=== PATIENT | female | born 1940 | race Two or more races ===

== ENCOUNTER 2021-07-08 22:35 | Inpatient (IN) | payer MEDICAID, MEDICARE, OTHER ==
[~2021-07-08] VITALS: Ht 165.1 cm; Wt 86.2 kg
[~2021-07-08 22:35] MED LIST: ALLO100T PO; ASPI-1497 PO; ATOR10TA69 PO; DOCU-138 MT; METO-396 PO; OMEP20CA14 PO
[2021-07-08] MEDS ORDERED: ASPIRIN 81MG TABLET PO ONE (23:00)
[2021-07-08] MEDS ORDERED: SODIUM CHLORIDE 0.9% 1,000 ML IV ONE (23:00)
[2021-07-08 23:29] LABS: BASOPHILS % 0.5 % (0.0-2.0); EOSINOPHILS % 3.1 % (0.0-5.0); HEMATOCRIT. 30.4 % (36.0-48.0); HEMOGLOBIN. 10.1 g/dL (12.0-16.0); LYMPHOCYTES % 25.9 % (20.0-50.0); MEAN CORPUSCULAR HEMOGLOBIN 31.9 pg (28.0-32.0); MEAN CORPUSCULAR VOLUME 95.9 fL (81.0-99.0); MEAN PLATELET VOLUME 6.7 fl (7.4-10.4); MONOCYTES % 10.9 % (2.0-8.0); NEUTROPHILS % 59.6 % (40.0-76.0); PLATELET 211 x1000/uL (130-400); RED BLOOD CELL COUNT 3.17 mill/uL (4.2-5.4); RED CELL DISTRIBUTION WIDTH 16.5 % (11.6-14.6)
[2021-07-08 23:32] LABS: CHLORIDE 107 mEq/L (98-107)
[2021-07-09 01:22] LABS: CLARITY URINE TURBID (CLEAR); COLOR URINE DARK YELLOW (YELLOW); KETONES URINE TRACE (NEGATIVE); LEUKOCYTE ESTERASE URINE 3+ (NEGATIVE); NITRITE URINE NEGATIVE (NEGATIVE); OCCULT BLOOD URINE 2+ (NEGATIVE); PH URINE 5.5 (4.5-8.0); PROTEIN URINE 2+ (NEGATIVE); SPECIFIC GRAVITY URINE 1.018 (1.005-1.030)
[2021-07-09] MEDS ORDERED: CEFTRIAXONE 1 G PREMIX 50 ML IV SCH ×2 (01:45→13:00)
[2021-07-09] MEDS ORDERED: SODIUM CHLORIDE 0.9% 1000ML BAG (SEPSIS BOLUS) IV ONE (01:45)
[2021-07-09] MEDS ORDERED: SODIUM CHLORIDE 0.9% 1,000 ML IV ONE (05:15)
[2021-07-09] MEDS ORDERED: ENOXAPARIN 40MG/0.4ML SYR SUBCUT SCH (10:45)
[2021-07-09] MEDS ORDERED: SODIUM CHLORIDE 0.45% 1,000 ML IV ONE (11:00)
[2021-07-09] MEDS: ACETAMINOPHEN 325MG TABLET PO PRN (11:48)
[2021-07-09] MEDS: ASPIRIN 81MG EC TABLET PO SCH (12:23)
[2021-07-09] MEDS: METOPROLOL SUCCINATE 50MG ER TABLET PO SCH (12:50)
[2021-07-09] MEDS: MIDODRINE HCL 5MG TABLET PO SCH ×2 (13:00→17:00)
[2021-07-09] MEDS ORDERED: NOREPINEPHRINE 8MG/250ML PMX 250 ML IV ONE (13:00)
[2021-07-09] MEDS: NOREPINEPHRINE 8 MG in DEXTROSE 5% WATER 250 ML IV PRN (13:35)
[2021-07-09] MEDS: PIPERACILLIN/TAZ 3.375G PREMIX 50 ML IV SCH ×2 (13:44→20:43)
[2021-07-09] MEDS: ENOXAPARIN 30MG/0.3ML SYR SUBCUT SCH (14:47)
[2021-07-09] MEDS: OMEPRAZOLE 20MG CAPSULE EXTENDED RELEASE PO SCH (14:47)
[2021-07-09] MEDS: ALLOPURINOL 100 MG TABLET PO SCH (17:51)
[2021-07-09] MEDS: SODIUM CHLORIDE 0.45% 1,000 ML IV SCH (20:42)
[2021-07-09] MEDS: DOCUSATE SODIUM 100MG CAPSULE PO SCH (20:43)
[2021-07-09] MEDS: ATORVASTATIN CALCIUM 10MG TABLET PO SCH (20:43)
[2021-07-10] VITALS (36 sets, daily range): BP systolic 51–165; BP diastolic 25–114
[2021-07-10] MEDS: PIPERACILLIN/TAZ 3.375G PREMIX 50 ML IV SCH ×2 (05:26→13:24)
[2021-07-10 07:57] LABS: HEMATOCRIT. 31.6 % (36.0-48.0); HEMOGLOBIN. 10.6 g/dL (12.0-16.0); MEAN CORPUSCULAR HEMOGLOBIN 32.2 pg (28.0-32.0); MEAN CORPUSCULAR VOLUME 96.1 fL (81.0-99.0); MEAN PLATELET VOLUME 6.9 fl (7.4-10.4); PLATELET 218 x1000/uL (130-400); RED BLOOD CELL COUNT 3.29 mill/uL (4.2-5.4); RED CELL DISTRIBUTION WIDTH 16.6 % (11.6-14.6)
[2021-07-10 08:18] LABS: CHLORIDE 113 mEq/L (98-107)
[2021-07-10] MEDS: METOPROLOL SUCCINATE 50MG ER TABLET PO SCH (09:00)
[2021-07-10] MEDS: NOREPINEPHRINE 8 MG in DEXTROSE 5% WATER 250 ML IV PRN (10:30)
[2021-07-10] MEDS: ALLOPURINOL 100 MG TABLET PO SCH (11:46)
[2021-07-10] MEDS: MIDODRINE HCL 5MG TABLET PO SCH ×3 (11:46→17:43)
[2021-07-10] MEDS: ASPIRIN 81MG EC TABLET PO SCH (11:47)
[2021-07-10] MEDS: SODIUM CHLORIDE 0.45% 1,000 ML IV SCH ×2 (11:47→17:51)
[2021-07-10] MEDS: DOCUSATE SODIUM 100MG CAPSULE PO SCH ×2 (11:47→17:43)
[2021-07-10] MEDS: OMEPRAZOLE 20MG CAPSULE EXTENDED RELEASE PO SCH (11:47)
[2021-07-10] MEDS: ENOXAPARIN 30MG/0.3ML SYR SUBCUT SCH (11:47)
[2021-07-10 16:41] LABS: PLATELET ESTIMATE NORMAL
[2021-07-10] MEDS ORDERED: HYDROCORTISONE SOD SUCCINATE 100 MG/2 ML VIAL IV NR (17:15)
[2021-07-10] MEDS ORDERED: MIRT-89 MT (17:34)
[2021-07-10] MEDS ORDERED: SENN-257 MT (17:34)
[2021-07-10] MEDS ORDERED: LORA-250 MT (17:34)
[2021-07-10] MEDS ORDERED: T3 PO (17:34)
[2021-07-10] MEDS ORDERED: FURO20TA4 MT (17:34)
[2021-07-10] MEDS ORDERED: MECL-159 MT (17:34)
[2021-07-10] MEDS: ATORVASTATIN CALCIUM 10MG TABLET PO SCH (21:48)
[2021-07-10] MEDS: PIPERACILLIN/TAZOBACTAM 3.375G in DEXT 5% WATER 50ML IV SCH (21:48)
[2021-07-11] VITALS (97 sets, daily range): BP systolic 42–226; BP diastolic 19–185
[2021-07-11] MEDS: PIPERACILLIN/TAZOBACTAM 3.375G in DEXT 5% WATER 50ML IV SCH ×3 (06:38→22:42)
[2021-07-11] MEDS: SODIUM CHLORIDE 0.45% 1,000 ML IV SCH ×2 (06:58→23:38)
[2021-07-11] MEDS: ENOXAPARIN 30MG/0.3ML SYR SUBCUT SCH (09:05)
[2021-07-11] MEDS: ALLOPURINOL 100 MG TABLET PO SCH (09:05)
[2021-07-11] MEDS: OMEPRAZOLE 20MG CAPSULE EXTENDED RELEASE PO SCH (09:06)
[2021-07-11] MEDS: DOCUSATE SODIUM 100MG CAPSULE PO SCH ×2 (09:06→17:01)
[2021-07-11] MEDS: MIDODRINE HCL 5MG TABLET PO SCH ×3 (09:06→17:01)
[2021-07-11] MEDS: ASPIRIN 81MG EC TABLET PO SCH (09:06)
[2021-07-11 09:16] LABS: BASOPHILS % 0.4 % (0.0-2.0); EOSINOPHILS % 0.1 % (0.0-5.0); HEMATOCRIT. 28.7 % (36.0-48.0); HEMOGLOBIN. 9.6 g/dL (12.0-16.0); LYMPHOCYTES % 21.6 % (20.0-50.0); MEAN CORPUSCULAR VOLUME 96.1 fL (81.0-99.0); MEAN PLATELET VOLUME 7.4 fl (7.4-10.4); MONOCYTES % 3.4 % (2.0-8.0); NEUTROPHILS % 74.5 % (40.0-76.0); PLATELET 203 x1000/uL (130-400); RED BLOOD CELL COUNT 2.99 mill/uL (4.2-5.4); RED CELL DISTRIBUTION WIDTH 16.4 % (11.6-14.6)
[2021-07-11 09:44] LABS: CHLORIDE 112 mEq/L (98-107)
[2021-07-11] MEDS: METOPROLOL SUCCINATE 50MG ER TABLET PO SCH (13:20)
[2021-07-11] MEDS ORDERED: ALBUMIN HUMAN 25GM/500ML (5%) IV NR (14:45)
[2021-07-11] MEDS: NOREPINEPHRINE 32 MG in DEXT 5% WATER 218 ML IV PRN ×2 (16:16→21:27)
[2021-07-11 16:24] LABS: T4 FREE 1.19 ng/dL (0.76-1.46)
[2021-07-11 17:41] LABS: CLARITY URINE CLEAR (CLEAR); COLOR URINE YELLOW (YELLOW); KETONES URINE NEGATIVE (NEGATIVE); NITRITE URINE POSITIVE (NEGATIVE); OCCULT BLOOD URINE NEGATIVE (NEGATIVE); PROTEIN URINE NEGATIVE (NEGATIVE); SPECIFIC GRAVITY URINE 1.006 (1.005-1.030); UROBILINOGEN URINE 0.2 E.U./dL (0.2-1.0)
[2021-07-11 17:42] LABS: LEUKOCYTE ESTERASE URINE 3+ (NEGATIVE)
[2021-07-11] MEDS ORDERED: PNEUMOCOCCAL 23-VAL P-SAC VAC 0.5 ML IM ONE (21:00)
[2021-07-11] MEDS: ATORVASTATIN CALCIUM 10MG TABLET PO SCH (21:22)
[2021-07-12] VITALS (79 sets, daily range): BP systolic 84–184; BP diastolic 38–123
[2021-07-12 06:05] LABS: EOSINOPHILS % 6.8 % (0.0-5.0); HEMATOCRIT. 31.3 % (36.0-48.0); HEMOGLOBIN. 10.5 g/dL (12.0-16.0); LYMPHOCYTES % 23.5 % (20.0-50.0); MEAN CORPUSCULAR HEMOGLOBIN 31.8 pg (28.0-32.0); MEAN PLATELET VOLUME 6.9 fl (7.4-10.4); MONOCYTES % 10.4 % (2.0-8.0); NEUTROPHILS % 58.3 % (40.0-76.0); PLATELET 280 x1000/uL (130-400); RED BLOOD CELL COUNT 3.29 mill/uL (4.2-5.4); RED CELL DISTRIBUTION WIDTH 16.7 % (11.6-14.6)
[2021-07-12] MEDS: PIPERACILLIN/TAZOBACTAM 3.375G in DEXT 5% WATER 50ML IV SCH ×3 (06:09→21:22)
[2021-07-12 06:15] LABS: CHLORIDE 112 mEq/L (98-107)
[2021-07-12] MEDS: OMEPRAZOLE 20MG CAPSULE EXTENDED RELEASE PO SCH (08:04)
[2021-07-12] MEDS: ENOXAPARIN 40MG/0.4ML SYR SUBCUT SCH (08:45)
[2021-07-12] MEDS: MIDODRINE HCL 5MG TABLET PO SCH ×3 (08:46→17:12)
[2021-07-12] MEDS: ALLOPURINOL 100 MG TABLET PO SCH (08:46)
[2021-07-12] MEDS: ASPIRIN 81MG EC TABLET PO SCH (08:46)
[2021-07-12] MEDS: DOCUSATE SODIUM 100MG CAPSULE PO SCH ×2 (08:48→17:00)
[2021-07-12] MEDS ORDERED: POTASSIUM CHLORIDE 20MEQ TABLET SR PO SCH (10:15)
[2021-07-12] MEDS ORDERED: LORAZEPAM 1MG TABLET PO NR (11:00)
[2021-07-12] MEDS: METOPROLOL SUCCINATE 50MG ER TABLET PO SCH (11:13)
[2021-07-12 12:50] LABS: INR 1.1
[2021-07-12] MEDS ORDERED: KCL 20MEQ/100ML PREMIX 100 ML IV NR (17:00)
[2021-07-12] MEDS: ACETAMINOPHEN 325MG TABLET PO PRN (17:12)
[2021-07-12] MEDS: SODIUM CHLORIDE 0.45% 1,000 ML IV SCH (17:19)
[2021-07-12] MEDS: DOPAMINE 400MG/250ML PREMIX 250 ML IV PRN (17:58)
[2021-07-12 19:08] LABS: BG CARBOXYHEMOGLOBIN 0.1 % (0.5-1.5); BG DEOXYHEMOGLOBIN 4.7 % (0.0-5.0); BG FRACTION INSPIRED OXYGEN 21; BG HCO3 ACT 22.8 mmol/L (22.0-26.0); BG METHEMOGLOBIN 0.2 % (0.0-1.5); BG OXYGEN SATURATION 95.3 % (92.0-98.5); BG PCO2 38.9 mmHg (35.0-45.0); BG PH 7.385 (7.350-7.450); BG PO2 77.3 mmHg (75.0-100.0); BG TOTAL HEMOGLOBIN 11.2 g/dL (12.0-18.0); BG VENT MODE ROOM AIR
[2021-07-12] MEDS: ATORVASTATIN CALCIUM 10MG TABLET PO SCH (20:42)
[2021-07-13] VITALS (90 sets, daily range): BP systolic 47–194; BP diastolic 18–143
[2021-07-13] MEDS: ACETAMINOPHEN 650MG/20.3ML UDC PO PRN (03:48)
[2021-07-13] MEDS: DOPAMINE 400MG/250ML PREMIX 250 ML IV PRN (03:48)
[2021-07-13] MEDS: PIPERACILLIN/TAZOBACTAM 3.375G in DEXT 5% WATER 50ML IV SCH ×3 (05:56→21:23)
[2021-07-13] MEDS: SODIUM CHLORIDE 0.45% 1,000 ML IV SCH (05:57)
[2021-07-13] MEDS: OMEPRAZOLE 20MG CAPSULE EXTENDED RELEASE PO SCH (05:57)
[2021-07-13 06:03] LABS: EOSINOPHILS % 7.8 % (0.0-5.0); HEMATOCRIT. 33.7 % (36.0-48.0); HEMOGLOBIN. 11.5 g/dL (12.0-16.0); LYMPHOCYTES % 21.3 % (20.0-50.0); MEAN CORPUSCULAR HEMOGLOBIN 32.3 pg (28.0-32.0); MEAN CORPUSCULAR VOLUME 94.8 fL (81.0-99.0); MONOCYTES % 11.3 % (2.0-8.0); NEUTROPHILS % 58.6 % (40.0-76.0); PLATELET 222 x1000/uL (130-400); RED BLOOD CELL COUNT 3.56 mill/uL (4.2-5.4); RED CELL DISTRIBUTION WIDTH 16.7 % (11.6-14.6)
[2021-07-13 06:33] LABS: CHLORIDE 112 mEq/L (98-107)
[2021-07-13] MEDS: DOCUSATE SODIUM 100MG CAPSULE PO SCH ×2 (09:13→17:00)
[2021-07-13] MEDS: ALLOPURINOL 100 MG TABLET PO SCH (09:13)
[2021-07-13] MEDS: ASPIRIN 81MG EC TABLET PO SCH (09:13)
[2021-07-13] MEDS: ENOXAPARIN 40MG/0.4ML SYR SUBCUT SCH (09:14)
[2021-07-13] MEDS: MIDODRINE HCL 5MG TABLET PO SCH ×3 (09:14→17:00)
[2021-07-13] MEDS ORDERED: MAGNESIUM 2 G PREMIX 50 ML IV NR (11:00)
[2021-07-13] MEDS: NOREPINEPHRINE 32 MG in DEXT 5% WATER 218 ML IV PRN (11:24)
[2021-07-13] MEDS: LORAZEPAM 2MG/ML CPJ IV PRN (13:22)
[2021-07-13] MEDS: ATORVASTATIN CALCIUM 10MG TABLET PO SCH (20:36)
[2021-07-14] VITALS (58 sets, daily range): BP systolic 59–168; BP diastolic 26–125
[2021-07-14] MEDS: LORAZEPAM 2MG/ML CPJ IV PRN ×2 (01:58→16:52)
[2021-07-14] MEDS: OMEPRAZOLE 20MG CAPSULE EXTENDED RELEASE PO SCH (05:31)
[2021-07-14] MEDS: PIPERACILLIN/TAZOBACTAM 3.375G in DEXT 5% WATER 50ML IV SCH (05:31)
[2021-07-14 06:12] LABS: BASOPHILS % 1.1 % (0.0-2.0); CHLORIDE 112 mEq/L (98-107); EOSINOPHILS % 10.2 % (0.0-5.0); HEMATOCRIT. 28.4 % (36.0-48.0); HEMOGLOBIN. 9.9 g/dL (12.0-16.0); LYMPHOCYTES % 40.2 % (20.0-50.0); MEAN CORPUSCULAR HEMOGLOBIN 32.9 pg (28.0-32.0); MEAN CORPUSCULAR VOLUME 94.6 fL (81.0-99.0); MEAN PLATELET VOLUME 7.1 fl (7.4-10.4); MONOCYTES % 9.6 % (2.0-8.0); NEUTROPHILS % 38.9 % (40.0-76.0); PLATELET 201 x1000/uL (130-400); RED BLOOD CELL COUNT 3.01 mill/uL (4.2-5.4); RED CELL DISTRIBUTION WIDTH 16.7 % (11.6-14.6)
[2021-07-14] MEDS: DOCUSATE SODIUM 100MG CAPSULE PO SCH ×2 (09:50→16:35)
[2021-07-14] MEDS: ASPIRIN 81MG EC TABLET PO SCH (09:50)
[2021-07-14] MEDS: ENOXAPARIN 40MG/0.4ML SYR SUBCUT SCH (09:50)
[2021-07-14] MEDS: MIDODRINE HCL 5MG TABLET PO SCH ×3 (09:50→16:39)
[2021-07-14] MEDS: ALLOPURINOL 100 MG TABLET PO SCH (09:50)
[2021-07-14] MEDS: ATORVASTATIN CALCIUM 10MG TABLET PO SCH (20:52)
[2021-07-15] VITALS (7 sets, daily range): BP systolic 105–138; BP diastolic 65–79
[2021-07-15] MEDS: OMEPRAZOLE 20MG CAPSULE EXTENDED RELEASE PO SCH (05:19)
[2021-07-15 07:53] LABS: CHLORIDE 113 mEq/L (98-107)
[2021-07-15 07:59] LABS: HEMATOCRIT. 27.4 % (36.0-48.0); HEMOGLOBIN. 9.2 g/dL (12.0-16.0); LYMPHOCYTES % 30.2 % (20.0-50.0); MEAN CORPUSCULAR VOLUME 95.2 fL (81.0-99.0); MEAN PLATELET VOLUME 6.9 fl (7.4-10.4); MONOCYTES % 8.6 % (2.0-8.0); NEUTROPHILS % 51.2 % (40.0-76.0); PLATELET 196 x1000/uL (130-400); RED BLOOD CELL COUNT 2.87 mill/uL (4.2-5.4); RED CELL DISTRIBUTION WIDTH 16.5 % (11.6-14.6)
[2021-07-15] MEDS: ALLOPURINOL 100 MG TABLET PO SCH (09:29)
[2021-07-15] MEDS: DOCUSATE SODIUM 100MG CAPSULE PO SCH ×2 (09:29→17:21)
[2021-07-15] MEDS: MIDODRINE HCL 5MG TABLET PO SCH ×3 (09:29→17:00)
[2021-07-15] MEDS: ASPIRIN 81MG EC TABLET PO SCH (09:29)
[2021-07-15] MEDS: ENOXAPARIN 40MG/0.4ML SYR SUBCUT SCH (09:30)
[2021-07-15] MEDS ORDERED: LACTULOSE 20G/30ML UDC PO NR (12:15)
[2021-07-15] MEDS: LORAZEPAM 2MG/ML CPJ IV PRN (18:17)
[2021-07-15] MEDS: PIPERACILLIN/TAZOBACTAM 3.375 G in DEXTROSE 5% WATER 50 ML IV SCH ×2 (18:17→22:52)
[2021-07-15] MEDS: ACETAMINOPHEN 650MG/20.3ML UDC PO PRN (22:53)
[2021-07-15] MEDS: ATORVASTATIN CALCIUM 10MG TABLET PO SCH (22:53)
[2021-07-16] MEDS: OMEPRAZOLE 20MG CAPSULE EXTENDED RELEASE PO SCH (06:45)
[2021-07-16 07:51] VITALS: BP 117/81
[2021-07-16] MEDS: ENOXAPARIN 40MG/0.4ML SYR SUBCUT SCH ×2 (09:00→09:35)
[2021-07-16] MEDS: DOCUSATE SODIUM 100MG CAPSULE PO SCH ×2 (09:34→16:52)
[2021-07-16] MEDS: ASPIRIN 81MG EC TABLET PO SCH (09:35)
[2021-07-16] MEDS: ALLOPURINOL 100 MG TABLET PO SCH (09:35)
[2021-07-16] MEDS: MIDODRINE HCL 5MG TABLET PO SCH ×3 (09:35→16:51)
[2021-07-16 12:00] VITALS: BP 115/89
[2021-07-16] MEDS: PIPERACILLIN/TAZOBACTAM 3.375 G in DEXTROSE 5% WATER 50 ML IV SCH ×2 (13:15→22:00)
[2021-07-16 15:53] VITALS: BP 136/63
[2021-07-16 20:00] VITALS: BP 114/96
[2021-07-16] MEDS: ACETAMINOPHEN 650MG/20.3ML UDC PO PRN (23:00)
[2021-07-16] MEDS: ATORVASTATIN CALCIUM 10MG TABLET PO SCH (23:01)
[2021-07-16] MEDS: LORAZEPAM 2MG/ML CPJ IV PRN (23:02)
[2021-07-17] MEDS: ACETAMINOPHEN 650MG/20.3ML UDC PO PRN (05:24)
[2021-07-17] MEDS: OMEPRAZOLE 20MG CAPSULE EXTENDED RELEASE PO SCH (05:25)
[2021-07-17] MEDS: PIPERACILLIN/TAZOBACTAM 3.375 G in DEXTROSE 5% WATER 50 ML IV SCH ×2 (05:29→14:24)
[2021-07-17 07:39] LABS: EOSINOPHILS % 6.8 % (0.0-5.0); HEMATOCRIT. 26.9 % (36.0-48.0); HEMOGLOBIN. 9.1 g/dL (12.0-16.0); MEAN CORPUSCULAR HEMOGLOBIN 32.6 pg (28.0-32.0); MEAN CORPUSCULAR VOLUME 95.8 fL (81.0-99.0); MEAN PLATELET VOLUME 7.2 fl (7.4-10.4); MONOCYTES % 11.6 % (2.0-8.0); NEUTROPHILS % 42.6 % (40.0-76.0); PLATELET 225 x1000/uL (130-400); RED BLOOD CELL COUNT 2.81 mill/uL (4.2-5.4)
[2021-07-17 08:00] VITALS: BP 82/41
[2021-07-17 08:10] LABS: CHLORIDE 114 mEq/L (98-107)
[2021-07-17] MEDS: MIDODRINE HCL 5MG TABLET PO SCH ×2 (10:12→14:24)
[2021-07-17] MEDS: ASPIRIN 81MG EC TABLET PO SCH (10:12)
[2021-07-17] MEDS: ALLOPURINOL 100 MG TABLET PO SCH (10:13)
[2021-07-17] MEDS: DOCUSATE SODIUM 100MG CAPSULE PO SCH (10:13)
[2021-07-17] MEDS: ENOXAPARIN 40MG/0.4ML SYR SUBCUT SCH (10:14)
[2021-07-17 12:00] VITALS: BP 113/45
[2021-07-17 16:00] VITALS: BP 120/60
[2021-07-17 16:26] VITALS: BP 127/54
== END 2021-07-17 18:10 | disposition home health service (06) | DRG 871 ==
LOC: ER 22:35 → EDBD 22:35 → CVICU 07-09 05:03 → EDBEDREQSVC 07-09 12:53 → ENRESERV 07-10 14:47 → MICUNO 07-12 15:00 → 5WST 07-14 23:00
PROVIDERS: ADMIT Internal Medicine; ATTEND Internal Medicine
PROC: 05HY33Z Insertion of Infusion Device into Upper Vein, Percutaneous Approach (ICD-10-PCS; principal; 2021-07-10)
PROC: B54MZZA Ultrasonography of Right Upper Extremity Veins, Guidance (ICD-10-PCS; 2021-07-10)
DX: A41.9 Sepsis, unspecified organism (principal); R65.21 Severe sepsis with septic shock; I50.33 Acute on chronic diastolic (congestive) heart failure; E43 Unspecified severe protein-calorie malnutrition; N39.0 Urinary tract infection, site not specified; G93.40 Encephalopathy, unspecified; D64.9 Anemia, unspecified; E66.9 Obesity, unspecified; E78.5 Hyperlipidemia, unspecified; Z20.822 Contact with and (suspected) exposure to COVID-19; R53.1 Weakness; R94.31 Abnormal electrocardiogram [ECG] [EKG]; I11.0 Hypertensive heart disease with heart failure; R00.1 Bradycardia, unspecified; E87.6 Hypokalemia; Z79.899 Other long term (current) drug therapy; Z95.828 Presence of other vascular implants and grafts; Z86.718 Personal history of other venous thrombosis and embolism; Z68.31 Body mass index [BMI] 31.0-31.9, adult; Z88.6 Allergy status to analgesic agent; Z90.49 Acquired absence of other specified parts of digestive tract; Z79.82 Long term (current) use of aspirin
CPT/HCPCS: 36415; 36600; 71045; 74176; 76937; 80048; 80053; 80076; 81003; 82375; 82533; 82805; 82962; 83735; 83880; 84439; 84443; 84484; 85025; 90732; 93005; 93306; 93970; 97162; 99285; C1725; C1769; C1892; J0696; J1265; J1650; J1720; J2060; J2543; J3475; J3480; J3490; J7030; J7040; J7060; P9041